=== PATIENT | female | born 1960 | race Caucasian/White ===

== ENCOUNTER 2017-10-01 15:03 | Emergency (ER) | payer SELFPAY ==
--- NOTE | 2017-10-01 17:29 | RAD ---
AP VIEW OF CHEST: Date: 10/01/17 INDICATION: History of cough. COMPARISON: None. FINDINGS: There are areas of reticulonodular opacity within the right upper lobe, right lower lobe, and left l ower lobe which can be seen with a bronchiolitis. No confluent air space opacity is evident. Left co stophrenic angle is excluded. No pneumothorax is evident. Heart size normal. IMPRESSION: Findings suspicious for bronchiolitis. POS: [facility]
[2017-10-01] MEDS ORDERED: Albuterol Sulfate 2.5 mg/3 ml Neb ONE (17:32)
[2017-10-01 17:38] LABS: Lactate 0.92 mmol/L (0.50-2.20)
[2017-10-01 17:52] LABS: #Eosinphils 0.2 thou/uL (0.0-0.7); #Monocytes 0.7 thou/uL (0.11-0.59); #Neutrophils 5.6 thou/uL (1.40-6.50); %Basophils 0.5 % (0.0-1.0); %Eosinophils 2.3 % (0.0-10.0); %Lymphocytes 23.8 % (21.0-51.0); %Monocytes 7.8 % (0.0-10.0); Hematocrit 41.1 % (36.0-47.0); Red Blood Cell (RBC) Count 4.45 mill/uL (4.20-5.40); White Blood Cell (WBC) Count 8.5 thou/uL (4.8-10.8)
[2017-10-01 18:15] LABS: ALT (SGPT) 33 U/L (8-55); AST (SGOT) 33 U/L (5-34); Alkaline Phosphatase 87 U/L (40-150); Anion Gap 16 mmol/L (10-20); BUN (Urea Nitrogen) 13 mg/dL (9.8-20.1); Bilirubin, Total 0.6 mg/dL (0.2-1.2); Calc. Creatinine Clearance 0 mL/min (70-130); Calcium 9.2 mg/dL (7.8-10.44); Carbon Dioxide 26 mmol/L (22-29); Chloride 102 mmol/L (98-107); Estimated GFR-MDRD 79; Globulin 4.1 g/dL (2.4-3.5)
[2017-10-01] MEDS ORDERED: cefTRIAXone\\ROCEPHIN 1 GM VIAL IM SCH (18:45)
[2017-10-01] MEDS ORDERED: Ibuprofen 800 MG TAB ONE (18:55)
== END 2017-10-01 19:34 | disposition home or self-care (01) ==
LOC: ERS 15:03
DX: J40 Bronchitis, not specified as acute or chronic (principal); I10 Essential (primary) hypertension; F32.9 Major depressive disorder, single episode, unspecified
CPT/HCPCS: 36415; 71010; 80053; 83605; 85025; 87070; 87077; 87205; 96372; J0696; J7611

== ENCOUNTER 2019-01-25 15:56 | Emergency (ER) | payer BC ==
[2019-01-25] MEDS ORDERED: HYDROcodone/Acetaminophen 5/325 mg Tablet ONE (18:32)
--- NOTE | 2019-01-25 19:26 | RAD ---
LUMBAR SPINE: 01/25/19 Two views. HISTORY: Back pain. Lumbar vertebrae maintain height and alignment. There is disc space narrowing at L5-S1. Mild degenera tive osteophytes from the lumbar vertebrae. Mild facet hypertrophy. No evidence of spondylolisthesis. IMPRESSION: There are mild degenerative changes as described. POS: [facility]
== END 2019-01-25 19:28 | disposition home or self-care (01) ==
LOC: ERS 15:56
DX: G89.29 Other chronic pain (principal); M54.5 Low back pain; I10 Essential (primary) hypertension; F32.9 Major depressive disorder, single episode, unspecified; Z79.899 Other long term (current) drug therapy
CPT/HCPCS: 72100

== ENCOUNTER 2019-03-14 00:08 | Outpatient (CLI) | payer BC ==
[2019-03-14 15:42] LABS: Anion Gap 14 mmol/L (10-20); BUN (Urea Nitrogen) 13 mg/dL (9.8-20.1); Calc. Creatinine Clearance 0 mL/min (70-130); Calcium 9.3 mg/dL (7.8-10.44); Carbon Dioxide 26 mmol/L (22-29); Chloride 102 mmol/L (98-107); Estimated GFR-MDRD 74; Glucose 123 mg/dL (70-105); Potassium 3.7 mmol/L (3.5-5.1); Sodium 138 mmol/L (136-145)
== END 2019-03-14 00:09 | disposition home or self-care (01) ==
LOC: LABBT 00:08
PROVIDERS: ATTEND Neurological Surgery
DX: Z01.818 Encounter for other preprocedural examination (principal); M51.16 Intervertebral disc disorders with radiculopathy, lumbar region
CPT/HCPCS: 80048; 93005; 93010

== ENCOUNTER 2019-03-16 06:35 | Day surgery (SDC) | payer BC ==
[2019-03-14 13:38] VITALS: BMI 39.5
--- NOTE | 2019-03-15 13:35 | HP ---
HISTORY OF PRESENT ILLNESS: Ms. Fishman is a 58-year-old woman, known to our practice for previous evaluation of right-sided lumbar radiculopathy in 2013, who returns today for roughly 1 year worth of left-sided lower back pain, buttock pain, and severe lateral lower leg pain into the ankle. This has been amenable to oral steroids and naproxen. She has an MRI performed from [facility] that reveals an inferiorly migrated left L4 disk that impacts and displaces the descending left L5 nerve root matching her symptoms well. She has exhausted conservative therapy in the form of medications, injections, and physical therapy, and at this time given her pain continues to persist, she hopes to move forward with surgery if possible. PAST MEDICAL HISTORY: Significant for hypertension and anxiety. CURRENT MEDICATIONS: 1. Lisinopril. 2. Hydrochlorothiazide. 3. Gabapentin. 4. Fluoxetine. ALLERGIES: NO KNOWN DRUG ALLERGIES. PAST SURGICAL HISTORY: Hysterectomy. REVIEW OF SYSTEMS: The patient reports back pain, leg pain. Denies numbness or tingling. Denies gait imbalance. Denies bladder or bowel incontinence. Denies headache. ASSESSMENT: Lumbar radiculopathy. PLAN: Dr. Saenz met with the patient, reviewed imaging, advocated for left L4 diskectomy. He explained to the patient the risks, benefits, and alternatives to the procedure. The patient expressed understanding and elected to move forward with surgery as discussed. I do believe the patient is mentally competent and capable of making medical decisions for herself. We will move forward with surgery as planned. Job ID: [id number]
[2019-03-16] MEDS ORDERED: Thrombin 5000 UNITS/5 ML VIAL ONE (06:44)
[2019-03-16] MEDS ORDERED: Fentanyl 100 MCG/2 ML VIAL ONE ×4 (06:46→10:02)
[2019-03-16] MEDS ORDERED: Bupivacaine PF 0.5% 30 ML VIAL ONE (06:59)
--- NOTE | 2019-03-16 07:36 | PRG ---
DATE OF SERVICE: 03/16/2019 I met with Ms. Fishman in the day stay area this morning to review with her again her symptoms, which remain consistent. She has left L5 radiculopathy. As discussed with her previously, both on the phone and in the outpatient setting, she has a left L4 extruded disk fragment, which would account for her symptoms. We will continue to move forward as planned with a left L4 diskectomy to decompress the left L5 nerve root. Job ID: [id number]
[2019-03-16] MEDS ORDERED: Bupivacaine HCl 0.5%/Epinephrine 1:200,000/PF 30 ml Vial ONE (07:58)
--- NOTE | 2019-03-16 10:50 | OP ---
DATE OF PROCEDURE: 03/16/2019 COMPLAINT SUPERVISOR: Mario Khanna PA-C INDICATION: Pain. DIAGNOSIS: Lumbar radiculopathy. PROCEDURES PERFORMED: Left L4-L5 hemilaminectomy, medial facetectomy, diskectomy. ANESTHESIA: General. DESCRIPTION OF PROCEDURE: The patient was brought into the operating room and placed under general anesthesia. She was flipped from the supine to prone position on the operating room table. A linear incision was planned over the L4-L5 segment. After prepping and draping and after an appropriate preoperative pause, the incision was created. The soft tissues were swept left of midline. Self-retaining retractors were placed in the wound for optimal exposure. After confirming the appropriate level with C-arm fluoroscopy, laminectomy was performed along the superior aspect of L5 and the inferior aspect of L4. The descending L5 nerve root was identified and mobilized medially. There was a protuberant disk mass just medial to the ball of the pedicle as was indicated on the MRI scan indicative of inferior migration. An 11 blade knife was used to perform an annulotomy in this area and disk material was removed until the descending L5 nerve root was decompressed. The wound was irrigated. Hemostasis was maintained throughout. The wound was then closed in anatomic layers and a pressure dressing was applied. There were no known procedural complications. Job ID: [id number]
[2019-03-16] MEDS ORDERED: HYDROcodone/Acetaminophen 5/325 mg Tablet ONE (11:34)
[2019-03-16] MEDS ORDERED: Rocuronium Bromide 10 MG/ML (10ML VIAL) ONE (16:32)
[2019-03-16] MEDS ORDERED: PROPOFOL 200 MG/20 ML VIAL ONE (16:32)
[2019-03-16] MEDS ORDERED: Dexamethasone 20 MG/5 ML VIAL ONE (16:32)
[2019-03-16] MEDS ORDERED: Ondansetron PF 4 MG/2 ML Vial ONE (16:32)
[2019-03-16] MEDS ORDERED: Glycopyrrolate 0.2 MG/ML 5 ML SYRINGE ONE (16:32)
[2019-03-16] MEDS ORDERED: ePHEDrine 50 MG/ML VIAL ONE (16:32)
[2019-03-16] MEDS ORDERED: Lidocaine 1% PF 5 ML VIAL ONE (16:32)
== END 2019-03-16 14:35 | disposition home or self-care (01) ==
LOC: SDC 06:35
PROVIDERS: ATTEND Neurological Surgery
PROC: 0SB20ZZ Excision of Lumbar Vertebral Disc, Open Approach (ICD-10-PCS; principal; 2019-03-16)
PROC: 01NB0ZZ Release Lumbar Nerve, Open Approach (ICD-10-PCS; principal; 2019-03-16)
DX: M51.16 Intervertebral disc disorders with radiculopathy, lumbar region (principal); I10 Essential (primary) hypertension; F41.9 Anxiety disorder, unspecified; Z79.899 Other long term (current) drug therapy
CPT/HCPCS: 76000; J0670; J0690; J1100; J2001; J2405; J2704; J3010; J3490; S0020

== ENCOUNTER 2019-04-27 13:39 | Outpatient (CLI) | payer BC ==
--- NOTE | 2019-04-27 14:30 | MMO ---
Bilateral MAMMO Bilat Screen [facility]. CLINICAL HISTORY: Patient is 58 years old and is seen for screening. The patient has no family history of breast cancer. The patient has no personal history of cancer. VIEWS: The views performed were: bilateral craniocaudal with tomosynthesis and bilateral mediolateral oblique with tomosynthesis. FILMS COMPARED: The present examination has been compared to prior imaging studies performed at [facility] on 06/24/2017 and 12/23/2017. MAMMOGRAM FINDINGS: There are scattered fibroglandular densities. There are benign appearing calcifications seen in both breasts. There are no suspicious masses, suspicious calcifications, or new areas of architectural distortion. IMPRESSION: THERE IS NO MAMMOGRAPHIC EVIDENCE OF MALIGNANCY. A ROUTINE FOLLOW-UP MAMMOGRAM IN 1 YEAR IS RECOMMENDED. THE RESULTS OF THIS EXAM WERE SENT TO THE PATIENT. ACR BI-RADS Category 2 - Benign finding MAMMOGRAPHY NOTE: 1. A negative mammogram report should not delay a biopsy if a dominant of clinically suspicious mass is present. 2. Approximately 10% to 15% of breast cancers are not detected by mammography. 3. Adenosis and dense breasts may obscure an underlying neoplasm.
== END 2019-04-27 13:40 | disposition home or self-care (01) ==
LOC: BICMAMMO 13:39
PROVIDERS: ATTEND Nurse Practitioner Family
DX: Z12.31 Encounter for screening mammogram for malignant neoplasm of breast (principal)
CPT/HCPCS: 77063; 77067

== ENCOUNTER 2021-09-17 22:05 | Emergency (ER) | payer OTHER, SELFPAY ==
[2021-09-17] MEDS ORDERED: Ketorolac Tromethamine 30 MG/ML VIAL ONE ×2 (23:35)
== END 2021-09-17 23:58 | disposition home or self-care (01) ==
LOC: ERS 22:05
DX: S09.90XA Unspecified injury of head, initial encounter (principal); S32.019A Unspecified fracture of first lumbar vertebra, initial encounter for closed fracture; I10 Essential (primary) hypertension; V49.9XXA Car occupant (driver) (passenger) injured in unspecified traffic accident, initial encounter; Z79.899 Other long term (current) drug therapy
CPT/HCPCS: 70450; 70486; 72100; 72125; 96372; J1885

== ENCOUNTER 2021-09-19 11:24 | Inpatient (IN) | payer OTHER, SELFPAY ==
[~2021-09-19 11:24] MED LIST: Iopamidol-370 76% 500 ML 1 ML ONE
[2021-09-19] MEDS ORDERED: Ondansetron PF 4 MG/2 ML Vial ONE (11:48)
[2021-09-19] MEDS ORDERED: Pantoprazole 40 MG VIAL ONE (11:48)
[2021-09-19 12:18] LABS: INR-International Normal Ratio 1.8; PTT 30.6 sec (22.9-36.1); Prothrombin Time 21.1 sec (12.0-14.7)
[2021-09-19 12:24] LABS: ALT (SGPT) 78 U/L (8-55); AST (SGOT) 88 U/L (5-34); Alkaline Phosphatase 53 U/L (40-110); Anion Gap 16 mmol/L (10-20); BUN (Urea Nitrogen) 27 mg/dL (9.8-20.1); Bilirubin, Total 2.6 mg/dL (0.2-1.2); Calc. Creatinine Clearance 0 mL/min (70-130); Calcium 8.2 mg/dL (7.8-10.44); Carbon Dioxide 21 mmol/L (22-29); Chloride 110 mmol/L (98-107); Globulin 3.2 g/dL (2.4-3.5); Glucose 169 mg/dL (70-105); MDiff Complete? YES; Platelet Morphology Comment Appears Decreased; Polychromasia SLIGHT = 2-3 cells (100X) (0-2/hpf); Protein, Total 6.2 g/dL (6.0-8.3); Sodium 143 mmol/L (136-145)
[2021-09-19 12:25] LABS: #Lymphocytes 1.7 thou/uL (1.20-3.40); #Monocytes 0.8 thou/uL (0.11-0.59); #Neutrophils 8.7 thou/uL (1.40-6.50); %Basophils 0.2 % (0.0-1.0); %Eosinophils 0.2 % (0.0-10.0); %Lymphocytes 15.2 % (21.0-51.0); %Monocytes 7.2 % (0.0-10.0); %Neutrophils 77.3 % (42.0-75.0); Hemoglobin 9.7 g/dL (12.0-16.0); Mean Corpuscular HGB CONC 33.7 g/dL (32.0-36.0); Mean Corpuscular Hemoglobin 33.1 pg (27.0-31.0); Mean Corpuscular Volume 98.4 fL (78.0-98.0); Mean Platelet Volume 10.2 fL (7.4-10.4); Platelet Count 115 thou/uL (130-400); RBC Distribution Width 13.6 % (11.5-14.5); Red Blood Cell (RBC) Count 2.93 mill/uL (4.20-5.40); White Blood Cell (WBC) Count 11.2 thou/uL (4.8-10.8)
[2021-09-19] MEDS ORDERED: HumaLOG 300 UNITS/3 ML VIAL SC PRN (15:22)
[2021-09-19] MEDS ORDERED: Ondansetron PF 4 MG/2 ML Vial IVP PRN (15:22)
[2021-09-19] MEDS ORDERED: Acetaminophen 325 MG TAB PO PRN (15:22)
[2021-09-19] MEDS ORDERED: Dextrose 5% in Water 1,000 ML IV PRN (15:22)
[2021-09-19] MEDS ORDERED: Dextrose 50% Abboject 50 ML SYRINGE SLOW IVP PRN (15:22)
[2021-09-19] MEDS ORDERED: Octreotide Acetate 1,250 MCG in Sodium Chloride 0.9% 250 ML 250 ML IVPB SCH (15:30)
[2021-09-19] MEDS ORDERED: Octreotide Acetate 50 MCG/ML AMP SLOW IVP SCH (15:30)
[2021-09-19] MEDS: cefTRIAXone\\ROCEPHIN 1 GM in Sodium Chloride 0.9% 100 ML IVPB SCH (17:26)
[2021-09-19] MEDS: Sodium Chloride 0.9% 1,000 ML IV SCH (17:26)
[2021-09-19 17:44] VITALS: BMI 33.4
[2021-09-19] MEDS: Morphine 4 MG/ML VIAL SLOW IVP PRN ×2 (18:07→21:43)
[2021-09-19] MEDS ORDERED: FLU VACC QS2021-22(6MOS UP)/PF 60 MCG/0.5 ML SYRINGE IM ONE (18:15)
[2021-09-19 19:12] LABS: Hemoglobin 8.8 g/dL (12.0-16.0)
[2021-09-19 19:20] LABS: Hemoglobin A1c 4.7 % (4.0-6.0)
[2021-09-19] MEDS: Pantoprazole 40 MG VIAL IVP SCH (20:00)
[2021-09-19 20:04] LABS: HBCM Index 0.08 S/CO (0-0.79); HBSAg Index 0.26 S/CO (0-0.99); Hep A IgM AB Non-Reactive (NonReactive); Hep A IgM S/CO 0.11 S/CO (0-0.79); Hep B Surf Ag Non-Reactive S/CO (NonReactive); Hepatitis B Core IgM Abs Non-Reactive (NonReactive)
[2021-09-19 20:10] LABS: Hep C IgG Ab Reflex HepC Qnt (NonReactive); Hep C Index 14.16 S/CO (0-0.79)
[2021-09-19] MEDS: Lorazepam 1 MG TAB PO PRN (21:37)
[2021-09-20] MEDS: Sodium Chloride 0.9% 1,000 ML IV SCH ×3 (00:46→16:42)
[2021-09-20] MEDS: Morphine 4 MG/ML VIAL SLOW IVP PRN ×3 (06:14→18:35)
[2021-09-20 07:02] LABS: #Basophils 0.1 thou/uL (0.0-0.2); #Lymphocytes 2.7 thou/uL (1.20-3.40); #Monocytes 0.6 thou/uL (0.11-0.59); #Neutrophils 4.1 thou/uL (1.40-6.50); %Basophils 0.9 % (0.0-1.0); %Eosinophils 0.5 % (0.0-10.0); %Lymphocytes 35.9 % (21.0-51.0); %Monocytes 7.6 % (0.0-10.0); %Neutrophils 55.1 % (42.0-75.0); Hemoglobin 8.4 g/dL (12.0-16.0); Mean Corpuscular HGB CONC 32.9 g/dL (32.0-36.0); Mean Corpuscular Hemoglobin 32.9 pg (27.0-31.0); Mean Platelet Volume 9.5 fL (7.4-10.4); Platelet Count 90 thou/uL (130-400); RBC Distribution Width 13.7 % (11.5-14.5); Red Blood Cell (RBC) Count 2.55 mill/uL (4.20-5.40); White Blood Cell (WBC) Count 7.4 thou/uL (4.8-10.8)
[2021-09-20 07:15] LABS: ALT (SGPT) 63 U/L (8-55); AST (SGOT) 68 U/L (5-34); Albumin 2.7 g/dL (3.5-5.0); Alkaline Phosphatase 52 U/L (40-110); Anion Gap 10 mmol/L (10-20); BUN (Urea Nitrogen) 29 mg/dL (9.8-20.1); Bilirubin, Total 1.6 mg/dL (0.2-1.2); Calc. Creatinine Clearance 127 mL/min (70-130); Calcium 7.8 mg/dL (7.8-10.44); Carbon Dioxide 24 mmol/L (22-29); Chloride 114 mmol/L (98-107); Globulin 2.8 g/dL (2.4-3.5); Glucose 143 mg/dL (70-105); Potassium 3.7 mmol/L (3.5-5.1); Protein, Total 5.5 g/dL (6.0-8.3); Sodium 144 mmol/L (136-145)
[2021-09-20 07:18] LABS: INR-International Normal Ratio 1.7; Prothrombin Time 20.6 sec (12.0-14.7)
[2021-09-20] MEDS: Pantoprazole 40 MG VIAL IVP SCH ×2 (08:41→19:35)
[2021-09-20 08:57] LABS: SARS-CoV-2 NAA Rapid Test Not Detected (NotDetected)
[2021-09-20] MEDS ORDERED: FLUoxetine HCl 20 MG CAP PO SCH ×2 (09:00→18:00)
[2021-09-20] MEDS ORDERED: Lisinopril/Hydrochlorothiazide 20 mg/12.5 mg Tablet PO SCH ×2 (09:00→18:00)
[2021-09-20] MEDS ORDERED: Lidocaine 1% PF 5 ML VIAL ONE (11:13)
[2021-09-20] MEDS ORDERED: PROPOFOL 200 MG/20 ML VIAL ONE (11:13)
[2021-09-20] MEDS: cefTRIAXone\\ROCEPHIN 1 GM in Sodium Chloride 0.9% 100 ML IVPB SCH (16:42)
[2021-09-20] MEDS ORDERED: Non-Formulary Item 1 EACH (Omeprazole [Omeprazole] 40 MG Capsule.Dr) PO SCH (17:30)
[2021-09-20] MEDS: Gabapentin 400 MG CAP PO SCH (19:36)
[2021-09-20] MEDS: Lorazepam 1 MG TAB PO PRN (19:37)
[2021-09-21] MEDS: Sodium Chloride 0.9% 1,000 ML IV SCH ×2 (01:07→10:00)
[2021-09-21 07:21] LABS: #Basophils 0.1 thou/uL (0.0-0.2); #Eosinphils 0.1 thou/uL (0.0-0.7); #Lymphocytes 2.4 thou/uL (1.20-3.40); #Monocytes 0.6 thou/uL (0.11-0.59); #Neutrophils 3.6 thou/uL (1.40-6.50); %Basophils 1.1 % (0.0-1.0); %Lymphocytes 35.4 % (21.0-51.0); %Monocytes 8.2 % (0.0-10.0); %Neutrophils 53.3 % (42.0-75.0); Hemoglobin 8.2 g/dL (12.0-16.0); Mean Corpuscular HGB CONC 34.1 g/dL (32.0-36.0); Mean Corpuscular Hemoglobin 33.8 pg (27.0-31.0); Mean Corpuscular Volume 99.2 fL (78.0-98.0); Mean Platelet Volume 8.7 fL (7.4-10.4); Platelet Count 94 thou/uL (130-400); RBC Distribution Width 13.2 % (11.5-14.5); Red Blood Cell (RBC) Count 2.43 mill/uL (4.20-5.40); White Blood Cell (WBC) Count 6.8 thou/uL (4.8-10.8)
[2021-09-21 07:27] LABS: ALT (SGPT) 54 U/L (8-55); AST (SGOT) 60 U/L (5-34); Albumin 2.6 g/dL (3.5-5.0); Alkaline Phosphatase 52 U/L (40-110); Anion Gap 10 mmol/L (10-20); BUN (Urea Nitrogen) 20 mg/dL (9.8-20.1); Bilirubin, Total 1.4 mg/dL (0.2-1.2); Calc. Creatinine Clearance 138 mL/min (70-130); Calcium 7.3 mg/dL (7.8-10.44); Carbon Dioxide 21 mmol/L (22-29); Chloride 111 mmol/L (98-107); Globulin 2.7 g/dL (2.4-3.5); Glucose 118 mg/dL (70-105); Potassium 3.4 mmol/L (3.5-5.1); Protein, Total 5.3 g/dL (6.0-8.3); Sodium 139 mmol/L (136-145)
[2021-09-21] MEDS: FLUoxetine HCl 20 MG CAP PO SCH (10:02)
[2021-09-21] MEDS: Lisinopril/Hydrochlorothiazide 20 mg/12.5 mg Tablet PO SCH (10:03)
[2021-09-21] MEDS: Cholecalciferol 1,000 UNITS (25 MCG) TAB PO SCH (10:03)
[2021-09-21] MEDS: Pantoprazole 40 MG VIAL IVP SCH ×2 (10:03→21:16)
[2021-09-21] MEDS: Calcium Carbonate 500 MG TAB PO SCH (11:50)
[2021-09-21 14:15] LABS: Iron 37 ug/dL (50-170); Iron Binding Capacity, Total 344 mcg/dL (265-497)
[2021-09-21 14:40] LABS: Ferritin 159.75 ng/mL (10-291)
[2021-09-21] MEDS ORDERED: Potassium Chloride 20 MEQ TAB PO SCH (14:45)
[2021-09-21] MEDS: cefTRIAXone\\ROCEPHIN 1 GM in Sodium Chloride 0.9% 100 ML IVPB SCH (17:16)
[2021-09-21] MEDS: Gabapentin 400 MG CAP PO SCH (21:15)
[2021-09-21] MEDS: Lorazepam 1 MG TAB PO PRN (21:16)
[2021-09-22 08:39] LABS: #Eosinphils 0.1 thou/uL (0.0-0.7); #Lymphocytes 1.9 thou/uL (1.20-3.40); #Monocytes 0.5 thou/uL (0.11-0.59); #Neutrophils 3.2 thou/uL (1.40-6.50); %Basophils 0.2 % (0.0-1.0); %Eosinophils 2.3 % (0.0-10.0); %Monocytes 9.2 % (0.0-10.0); %Neutrophils 55.3 % (42.0-75.0); Hemoglobin 7.9 g/dL (12.0-16.0); Mean Corpuscular HGB CONC 34.1 g/dL (32.0-36.0); Mean Corpuscular Hemoglobin 33.2 pg (27.0-31.0); Mean Corpuscular Volume 97.3 fL (78.0-98.0); Platelet Count 96 thou/uL (130-400); RBC Distribution Width 13.4 % (11.5-14.5); Red Blood Cell (RBC) Count 2.39 mill/uL (4.20-5.40); White Blood Cell (WBC) Count 5.7 thou/uL (4.8-10.8)
[2021-09-22 09:00] LABS: ALT (SGPT) 57 U/L (8-55); AST (SGOT) 68 U/L (5-34); Albumin 2.5 g/dL (3.5-5.0); Alkaline Phosphatase 50 U/L (40-110); Anion Gap 10 mmol/L (10-20); BUN (Urea Nitrogen) 12 mg/dL (9.8-20.1); Bilirubin, Total 1.8 mg/dL (0.2-1.2); Calc. Creatinine Clearance 136 mL/min (70-130); Calcium 7.6 mg/dL (7.8-10.44); Carbon Dioxide 22 mmol/L (22-29); Chloride 108 mmol/L (98-107); Globulin 2.7 g/dL (2.4-3.5); Glucose 191 mg/dL (70-105); Potassium 3.1 mmol/L (3.5-5.1); Protein, Total 5.2 g/dL (6.0-8.3); Sodium 137 mmol/L (136-145)
[2021-09-22] MEDS ORDERED: Potassium Chloride 20 MEQ TAB PO SCH (09:45)
[2021-09-22] MEDS: FLUoxetine HCl 20 MG CAP PO SCH (10:02)
[2021-09-22] MEDS: Lisinopril/Hydrochlorothiazide 20 mg/12.5 mg Tablet PO SCH (10:03)
[2021-09-22] MEDS: Cholecalciferol 1,000 UNITS (25 MCG) TAB PO SCH (10:03)
[2021-09-22] MEDS: Ferrous Sulfate 325 MG TAB PO SCH (10:04)
[2021-09-22] MEDS: Calcium Carbonate 500 MG TAB PO SCH (10:04)
[2021-09-22] MEDS: Pantoprazole 40 MG VIAL IVP SCH ×2 (10:06→20:59)
[2021-09-22] MEDS: cefTRIAXone\\ROCEPHIN 1 GM in Sodium Chloride 0.9% 100 ML IVPB SCH (17:07)
[2021-09-22 17:13] LABS: HCV log10 4.921 (.); Hep C PCR-Quant 83400 IU/mL (.)
[2021-09-22] MEDS: Gabapentin 400 MG CAP PO SCH (20:58)
[2021-09-22] MEDS: Morphine 4 MG/ML VIAL SLOW IVP PRN (20:59)
[2021-09-23] MEDS: Pantoprazole 40 MG VIAL IVP SCH ×2 (08:14→20:33)
[2021-09-23] MEDS: FLUoxetine HCl 20 MG CAP PO SCH (08:14)
[2021-09-23] MEDS: Cholecalciferol 1,000 UNITS (25 MCG) TAB PO SCH (08:14)
[2021-09-23] MEDS: Lisinopril/Hydrochlorothiazide 20 mg/12.5 mg Tablet PO SCH (08:14)
[2021-09-23] MEDS: Ferrous Sulfate 325 MG TAB PO SCH (08:14)
[2021-09-23] MEDS: Morphine 4 MG/ML VIAL SLOW IVP PRN ×3 (08:26→20:33)
[2021-09-23] MEDS: Calcium Carbonate 500 MG TAB PO SCH (09:16)
[2021-09-23] MEDS ORDERED: Labetalol HCl 100 MG/20 ML VIAL ONE (10:27)
[2021-09-23 11:24] LABS: #Eosinphils 0.2 thou/uL (0.0-0.7); #Lymphocytes 1.5 thou/uL (1.20-3.40); #Monocytes 0.7 thou/uL (0.11-0.59); #Neutrophils 4.5 thou/uL (1.40-6.50); %Basophils 0.6 % (0.0-1.0); %Eosinophils 2.3 % (0.0-10.0); %Lymphocytes 21.4 % (21.0-51.0); %Monocytes 9.6 % (0.0-10.0); %Neutrophils 66.2 % (42.0-75.0); Mean Corpuscular HGB CONC 34.7 g/dL (32.0-36.0); Mean Corpuscular Hemoglobin 33.8 pg (27.0-31.0); Mean Corpuscular Volume 97.4 fL (78.0-98.0); Mean Platelet Volume 9.3 fL (7.4-10.4); Platelet Count 119 thou/uL (130-400); RBC Distribution Width 14.1 % (11.5-14.5); Red Blood Cell (RBC) Count 2.66 mill/uL (4.20-5.40); White Blood Cell (WBC) Count 6.9 thou/uL (4.8-10.8)
[2021-09-23 11:54] LABS: ALT (SGPT) 75 U/L (8-55); AST (SGOT) 101 U/L (5-34); Albumin 2.9 g/dL (3.5-5.0); Alkaline Phosphatase 61 U/L (40-110); Anion Gap 9 mmol/L (10-20); BUN (Urea Nitrogen) 8 mg/dL (9.8-20.1); Bilirubin, Total 1.9 mg/dL (0.2-1.2); Calc. Creatinine Clearance 136 mL/min (70-130); Calcium 7.9 mg/dL (7.8-10.44); Carbon Dioxide 26 mmol/L (22-29); Chloride 103 mmol/L (98-107); Globulin 3.1 g/dL (2.4-3.5); Glucose 178 mg/dL (70-105); Potassium 3.3 mmol/L (3.5-5.1); Sodium 135 mmol/L (136-145)
[2021-09-23] MEDS ORDERED: Potassium Chloride 20 MEQ TAB PO SCH (16:06)
[2021-09-23] MEDS: cefTRIAXone\\ROCEPHIN 1 GM in Sodium Chloride 0.9% 100 ML IVPB SCH (17:36)
[2021-09-23] MEDS: Gabapentin 400 MG CAP PO SCH (20:33)
[2021-09-24 06:58] LABS: #Eosinphils 0.2 thou/uL (0.0-0.7); #Lymphocytes 1.7 thou/uL (1.20-3.40); #Monocytes 0.7 thou/uL (0.11-0.59); #Neutrophils 2.8 thou/uL (1.40-6.50); %Basophils 0.5 % (0.0-1.0); %Eosinophils 3.7 % (0.0-10.0); %Lymphocytes 30.6 % (21.0-51.0); %Monocytes 13.1 % (0.0-10.0); Hemoglobin 7.9 g/dL (12.0-16.0); Mean Corpuscular HGB CONC 34.8 g/dL (32.0-36.0); Mean Corpuscular Hemoglobin 33.8 pg (27.0-31.0); Mean Corpuscular Volume 97.1 fL (78.0-98.0); Mean Platelet Volume 9.4 fL (7.4-10.4); Platelet Count 100 thou/uL (130-400); RBC Distribution Width 14.8 % (11.5-14.5); Red Blood Cell (RBC) Count 2.34 mill/uL (4.20-5.40); White Blood Cell (WBC) Count 5.4 thou/uL (4.8-10.8)
[2021-09-24 07:17] LABS: ALT (SGPT) 67 U/L (8-55); AST (SGOT) 82 U/L (5-34); Albumin 2.5 g/dL (3.5-5.0); Alkaline Phosphatase 52 U/L (40-110); Anion Gap 9 mmol/L (10-20); BUN (Urea Nitrogen) 7 mg/dL (9.8-20.1); Bilirubin, Total 1.4 mg/dL (0.2-1.2); Calc. Creatinine Clearance 149 mL/min (70-130); Calcium 7.6 mg/dL (7.8-10.44); Carbon Dioxide 27 mmol/L (22-29); Chloride 104 mmol/L (98-107); Globulin 2.7 g/dL (2.4-3.5); Glucose 122 mg/dL (70-105); Potassium 3.5 mmol/L (3.5-5.1); Protein, Total 5.2 g/dL (6.0-8.3); Sodium 136 mmol/L (136-145)
[2021-09-24] MEDS: Calcium Carbonate 500 MG TAB PO SCH (08:12)
[2021-09-24] MEDS: FLUoxetine HCl 20 MG CAP PO SCH (08:12)
[2021-09-24] MEDS: Ferrous Sulfate 325 MG TAB PO SCH (08:12)
[2021-09-24] MEDS: Cholecalciferol 1,000 UNITS (25 MCG) TAB PO SCH (08:12)
[2021-09-24] MEDS: Lisinopril/Hydrochlorothiazide 20 mg/12.5 mg Tablet PO SCH (08:13)
[2021-09-24] MEDS: Pantoprazole 40 MG VIAL IVP SCH (08:14)
[2021-09-24 08:33] VITALS: TEMP 98.9
[2021-09-24] MEDS ORDERED: Morphine 4 MG/ML VIAL SLOW IVP PRN (09:46)
[2021-09-24] MEDS ORDERED: Polyethylene Glycol 3350 17 GM Packet PO PRN (11:39)
[2021-09-24] MEDS ORDERED: HYDROcodone/Acetaminophen 5/325 mg Tablet PO PRN (11:39)
[2021-09-24 13:44] VITALS: BP 119/76
== END 2021-09-24 17:55 | disposition home or self-care (01) | DRG 442 ==
LOC: ERS 11:24 → T4-A 15:04
PROVIDERS: ADMIT Family Medicine; ATTEND Family Medicine
PROC: 0DJ08ZZ Inspection of Upper Intestinal Tract, Via Natural or Artificial Opening Endoscopic (ICD-10-PCS; principal; 2021-09-20)
DX: K76.6 Portal hypertension (principal); S32.011A Stable burst fracture of first lumbar vertebra, initial encounter for closed fracture; K92.2 Gastrointestinal hemorrhage, unspecified; K31.89 Other diseases of stomach and duodenum; Z20.822 Contact with and (suspected) exposure to COVID-19; D64.9 Anemia, unspecified; E87.6 Hypokalemia; R74.01 Elevation of levels of liver transaminase levels; F10.10 Alcohol abuse, uncomplicated; K74.60 Unspecified cirrhosis of liver; D50.9 Iron deficiency anemia, unspecified; B18.2 Chronic viral hepatitis C; E11.9 Type 2 diabetes mellitus without complications; D69.6 Thrombocytopenia, unspecified; K21.9 Gastro-esophageal reflux disease without esophagitis; F32.9 Major depressive disorder, single episode, unspecified; V49.9XXA Car occupant (driver) (passenger) injured in unspecified traffic accident, initial encounter; I10 Essential (primary) hypertension; Z79.891 Long term (current) use of opiate analgesic; Z90.710 Acquired absence of both cervix and uterus; Z79.899 Other long term (current) drug therapy; Z87.891 Personal history of nicotine dependence
CPT/HCPCS: 36415; 36416; 71045; 74177; 76705; 80053; 80074; 82607; 82728; 82746; 83036; 83540; 83550; 85025; 85610; 85730; 86850; 86900; 86901; 87522; 87902; 90471; 90686; 93005; 96374; C9113; G0008; J0696; J2270; J2354; J2405; J2704; J3490; J7050; Q9967; U0002; U0003; U0005

== ENCOUNTER 2021-10-08 12:50 | Outpatient (CLI) | payer OTHER | END 2021-10-08 12:51 | disposition home or self-care (01) | LOC: TBSIIMAG 12:50 | PROVIDERS: ATTEND Neurological Surgery | DX: S32.011A Stable burst fracture of first lumbar vertebra, initial encounter for closed fracture (principal); M47.816 Spondylosis without myelopathy or radiculopathy, lumbar region | CPT/HCPCS: 72100 ==

== ENCOUNTER 2021-10-29 16:06 | Outpatient (CLI) | payer OTHER | END 2021-10-29 16:07 | disposition home or self-care (01) | LOC: BICRAD 16:06 | DX: S32.011A Stable burst fracture of first lumbar vertebra, initial encounter for closed fracture (principal) | CPT/HCPCS: 72100 ==

== ENCOUNTER 2022-09-08 13:52 | Outpatient (CLI) | payer OTHER | END 2022-09-08 13:53 | disposition home or self-care (01) | LOC: BICRAD 13:52 | PROVIDERS: ATTEND Emergency Medicine | DX: M54.50 Low back pain, unspecified (principal); M43.8X6 Other specified deforming dorsopathies, lumbar region | CPT/HCPCS: 72100 ==

== ENCOUNTER 2025-07-27 14:15 | Outpatient (CLI) | payer OTHER | END 2025-07-27 14:16 | disposition home or self-care (01) | LOC: BICMAMMO 14:15 | PROVIDERS: ATTEND Family Medicine | DX: Z12.31 Encounter for screening mammogram for malignant neoplasm of breast (principal) | CPT/HCPCS: 77063; 77067 ==